=== PATIENT | female | born 1980 | race African-American/Black ===

== ENCOUNTER 2019-05-22 08:00 | Inpatient (IN) | payer OTHER ==
[2019-05-22] MEDS ORDERED: ONDANSETRON 4 MG/2 ML VIAL IVPUSH PRN (09:37)
[2019-05-22] MEDS ORDERED: morphine SULFATE/PF 0.5 MG/ML (2cc Syringe - QUVA) EP ONE (09:37)
[2019-05-22 10:06] VITALS: BMI 55.7
[2019-05-22] MEDS ORDERED: morphine SULFATE/PF 0.5 MG/ML (2cc Syringe - QUVA) ONE (10:23)
[2019-05-22] MEDS ORDERED: CITRIC ACID/SODIUM CITRATE 30 ML UNIT-DOSE CUP PO ONE (10:24)
--- NOTE | 2019-05-22 10:24 | HP ---
Past Medical History - Primary Care Physician PCP:: Estephania Collier - Admission Chief Complaint: chronic hypertension. Previous Section. Obesity History of Present Illness: 38 yo EDC 06/03/2019 EGA 38 week with obesity, chronic hypertension, previous CS for repeat CS History Source: Patient Limitations to Obtaining History: No Limitations - Past Medical History ...: 3 ...Para: 1 ...Term: 0 ...: 1 ...Spon : 1 ...Induced : 0 ...Multiple Gestation: 0 ...LMP: 08/27/18 ... Weeks Gestation by Dates: 38.2 ...EDC by Dates: 06/03/19 - Past Surgical History Past Surgical History: Yes: Hx Myomectomy: No Hx Transabdominal Cerclage: No - Smoking History Smoking history: Never smoked Have you smoked in the past 12 months: No - Alcohol/Substance Use Hx Alcohol Use: No History of Substance Use: reports: None - Social History Usual Living Arrangement: Yes: With Spouse History of Recent Travel: No Home Medications - Allergies Allergies/Adverse Reactions: Allergies Allergy/AdvReac Type Severity Reaction Status Date / Time iodine Allergy Severe Itching Verified 05/22/19 10:06 shellfish derived Allergy Severe Itching Verified 05/22/19 10:06 Latex, Natural Rubber AdvReac Intermediate Itching Verified 05/22/19 10:06 - Home Medications Home Medications: Ambulatory Orders Aspirin [ASA -] 81 mg PO DAILY 05/22/19 Labetalol HCl [Normodyne -] 200 mg PO BID 05/22/19 Pnv No.95/Ferrous Fum/Folic AC [ Vitamin Tablet] 1 each PO DAILY 05/22/19 Review of Systems - Review of Systems Constitutional: reports: No Symptoms Eyes: reports: No Symptoms HENT: reports: No Symptoms Neck: reports: No Symptoms Cardiovascular: reports: No Symptoms Respiratory: reports: No Symptoms Gastrointestinal: reports: No Symptoms Genitourinary: reports: No Symptoms Breasts: reports: No Symptoms Reported Musculoskeletal: reports: No Symptoms Integumentary: reports: No Symptoms Neurological: reports: No Symptoms Endocrine: reports: No Symptoms Hematology/Lymphatic: reports: No Symptoms Psychiatric: reports: No Symptoms Physical Exam - Maternity Vital Signs: Vital Signs Temperature 98.4 F 05/22/19 09:00 Pulse Rate 75 05/22/19 09:00 Respiratory Rate 20 05/22/19 09:00 Blood Pressure 106/82 05/22/19 09:00 O2 Sat by Pulse Oximetry (%) Constitutional: Yes: Well Nourished, No Distress, Obese Breast(s): Yes: WNL - Abdominal Exam/OB Fundal Height: 38 Number of Fetuses: Single Presentation: Vertex Contractions: Yes Regularity: Regular Category: I Accelerations: Non-Uniform Decelerations: None - Vaginal Exam/OB Speculum Exam: No Dilatation (cm): closed Amniotic Membrane Status: Intact Presentation: Vertex/Position Station: -1 - Physical Exam Musculoskeletal: Yes: WNL Extremities: Yes: WNL Edema: No Psychiatric: Yes: WNL, Alert, Oriented Hemorrhage Risk Assessment - Risk Factors Medium Risk Factors: Yes: Prior , uterine surgery,or multiple laparotomies Risk Score: 1 Risk Level: Medium Risk Problem List - Problems (1) Chronic hypertension affecting Code(s): O10.919 - UNSP PRE-EXISTING HTN COMP , UNSP TRIMESTER (2) 38 weeks gestation of Code(s): Z3A.38 - 38 WEEKS GESTATION OF (3) Previous delivery affecting , antepartum Code(s): O34.219 - MATERNAL CARE FOR UNSP TYPE SCAR FROM PREVIOUS DEL (4) Obesity affecting in third trimester Code(s): O99.213 - OBESITY COMPLICATING , THIRD TRIMESTER Assessment/Plan Chronic HTN IUP at 38 week previous CS morbid obesity CAt 1 GBS negative Plan repeat CS
[2019-05-22] MEDS ORDERED: WITCH HAZEL 50% (TUCKS) 40 PAD/JAR PAD TP PRN (10:26)
[2019-05-22] MEDS ORDERED: diphenhydrAMINE HCL 25 MG CAPSULE (FP) PO PRN (10:26)
[2019-05-22] MEDS ORDERED: IBUPROFEN 800 MG/8 ML IJ IVPB PRN (10:26)
[2019-05-22] MEDS ORDERED: METHYLERGONOVINE MALEATE 0.2 MG/1 ML AMP IM PRN (10:26)
[2019-05-22] MEDS ORDERED: ACETAMINOPHEN 325 MG TABLET (FP) PO PRN (10:26)
[2019-05-22] MEDS ORDERED: BENZOCAINE 28 GM HEMORRHOIDAL OINTMENT RC PRN (10:26)
[2019-05-22] MEDS ORDERED: BENZOCAINE 20% 57 GM BOTTLE TP PRN (10:26)
[2019-05-22] MEDS ORDERED: ceFAZolin SODIUM 1 GM VIAL ONE (10:29)
[2019-05-22] MEDS ORDERED: OXYTOCIN 20 UNITS in 0.9% NS 40 UNIT/2,000 ML INFUS.BAG IV ONE (10:39)
[2019-05-22] MEDS ORDERED: OXYTOCIN 10 UNITS/ML VIAL ONE (10:49)
[2019-05-22] MEDS ORDERED: KETOROLAC TROMETHAMINE 30 MG/1 ML VIAL ONE (10:49)
[2019-05-22] MEDS: OXYTOCIN 20 UNITS in 0.9% NS 20 UNIT/1,000 ML INFUS.BAG IV SCH ×2 (11:15→22:44)
[2019-05-22] MEDS ORDERED: ELECTROLYTE-148 SOLN 1,000 ML IV SCH (13:00)
[2019-05-22] MEDS ORDERED: LABETALOL HCL 200 MG TABLET (FP) ONE (13:03)
[2019-05-22] MEDS: LABETALOL HCL 200 MG TABLET (FP) PO SCH ×2 (13:05→22:45)
--- NOTE | 2019-05-22 16:06 | OP ---
Operative Note - Note: Operative Date: 05/22/19 Pre-Operative Diagnosis: Chronic Hypertension. IUP at 38 week. previous CS Operation: Repeat Low transverse Section Findings: Live female Post-Operative Diagnosis: Same as Pre-op Surgeon: Estephania Collier Skeins Yarn Examiner: Manas Nguyen Anesthesia: Spinal Estimated Blood Loss (mls): 700 Operative Report Dictated: Yes
[2019-05-22] MEDS: CEFAZOLIN 2 GM/D5W 2 GM/50 ML ML IVPB SCH (17:59)
[2019-05-22] MEDS ORDERED: ceFAZolin 2 GRAM PREMIX BAG IVPB SCH (18:00)
[2019-05-22] MEDS: ACETAMINOPHEN 1000 MG/100 ML VIAL (NON FORMULARY) IVPB PRN (22:42)
[2019-05-23] MEDS: CEFAZOLIN 2 GM/D5W 2 GM/50 ML ML IVPB SCH ×2 (01:52→10:17)
[2019-05-23] MEDS: LABETALOL HCL 200 MG TABLET (FP) PO SCH ×3 (06:10→21:04)
[2019-05-23] MEDS: OXYTOCIN 20 UNITS in 0.9% NS 20 UNIT/1,000 ML INFUS.BAG IV SCH (06:12)
[2019-05-23] MEDS: ACETAMINOPHEN 1000 MG/100 ML VIAL (NON FORMULARY) IVPB PRN (06:34)
[2019-05-23] MEDS ORDERED: DIPHTH,PERTUSS(ACELL),TET 0.5 ML DISP.SYRIN IM ONE (10:00)
[2019-05-23] MEDS: ENOXAPARIN NA (PORCINE) 40 MG/0.4 ML DISP.SYRIN SQ SCH (10:17)
[2019-05-23] MEDS ORDERED: oxyCODONE HCL 5 MG TABLET PO PRN ×4 (10:26→16:08)
[2019-05-23] MEDS ORDERED: BISACODYL 10 MG SUPP.RECT RC PRN (10:26)
[2019-05-23] MEDS: SIMETHICONE 80 MG TAB.CHEW (FP) PO PRN (14:28)
[2019-05-23] MEDS: ACETAMINOPHEN 325 MG TABLET (FP) PO PRN ×2 (14:28→21:05)
--- NOTE | 2019-05-23 16:06 | PN ---
Progress Note (SOAP) - Subjective Chief Complaint: Pt upset bc baby taken to [facility] due to possible blockage no flatus Pt found ambulating - Current Medications Current Medications: Active Medications Diphenhydramine HCl (Benadryl Injection -) 25 mg IVPUSH Q4H PRN PRN Reason: Pruritis Enoxaparin Sodium (Lovenox -) 40 mg SQ DAILY [facility] Last Admin: 05/23/19 10:17 Dose: 40 mg Documented by: Oxytocin/Sodium Chloride (Normal Saline+20 Units Oxytocin -) 20 unit in 1,000 mls @ 125 mls/hr IV ASDIR [facility] Last Admin: 05/23/19 06:12 Dose: 125 mls/hr Documented by: Cefazolin Sodium/Dextrose (Ancef 2 Gm Premixed Ivpb -) 2 gm in 50 mls @ 100 mls/hr IVPB Q8H-IV [facility] Stop: 05/23/19 17:59 Last Admin: 05/23/19 10:17 Dose: 100 mls/hr Documented by: Parenteral Electrolytes (Plasma-Lyte 148 -) 1,000 mls @ 125 mls/hr IV ASDIR [facility] Last Admin: 05/22/19 09:30 Dose: 125 mls/hr Documented by: Labetalol HCl (Normodyne -) 200 mg PO TID [facility] Last Admin: 05/23/19 14:27 Dose: 200 mg Documented by: Ondansetron HCl (Zofran Injection) 4 mg IVPUSH Q4H PRN PRN Reason: NAUSEA Last Admin: 05/22/19 14:23 Dose: 4 mg Documented by: - Objective Vital Signs: Vital Signs Temperature 99.1 F 05/23/19 14:00 Pulse Rate 95 H 05/23/19 14:00 Respiratory Rate 20 05/23/19 14:00 Blood Pressure 119/80 05/23/19 14:00 O2 Sat by Pulse Oximetry (%) 97 05/22/19 12:25 Constitutional: Yes: Well Nourished, No Distress, Obese ....Post : Yes: Uterus firm, Uterus non-tender Extremities: Yes: WNL Edema: No Wound/Incision: Yes: Steri Strips, Open to air Problem List - Problems (1) Chronic hypertension affecting Code(s): O10.919 - UNSP PRE-EXISTING HTN COMP , UNSP TRIMESTER (2) 38 weeks gestation of Code(s): Z3A.38 - 38 WEEKS GESTATION OF (3) Previous delivery affecting , antepartum Code(s): O34.219 - MATERNAL CARE FOR UNSP TYPE SCAR FROM PREVIOUS DEL (4) Obesity affecting in third trimester Code(s): O99.213 - OBESITY COMPLICATING , THIRD TRIMESTER Assessment/Plan Chronic HTN POD1 doing well previous CS x 2 morbid obesity Plan oob will dc tomorrow if passing flatus
[2019-05-23] MEDS ORDERED: SENNOSIDES/DOCUSATE COMBO (SENNA PLUS) TABLET (UD) PO PRN (22:05)
[2019-05-24] MEDS: ACETAMINOPHEN 325 MG TABLET (FP) PO PRN ×2 (00:15→06:20)
[2019-05-24] MEDS: SIMETHICONE 80 MG TAB.CHEW (FP) PO PRN (00:16)
[2019-05-24] MEDS: LABETALOL HCL 200 MG TABLET (FP) PO SCH (06:20)
[2019-05-24 06:23] VITALS: PULSE 98
--- NOTE | 2019-05-24 07:34 | DS ---
Physical Exam-BOOKS BINDER Vital Signs: Vital Signs Temperature 99.0 F 05/23/19 21:48 Pulse Rate 98 H 05/24/19 06:00 Respiratory Rate 18 05/24/19 06:00 Blood Pressure 139/84 05/24/19 06:00 O2 Sat by Pulse Oximetry (%) 97 05/22/19 12:25 Constitutional: Yes: Well Nourished, No Distress, Obese ....Post : Yes: Uterus firm, Uterus non-tender Extremities: Yes: WNL Edema: No Psychiatric: Yes: WNL, Alert, Oriented Delivery - Delivery Type of Anesthesia: Spinal Episiotomy/Laceration: None EBL (cc): 700 Delivery, Single - Stages of Labor Date of Delivery: 05/22/19 Time of Delivery: 10:52 Time Placenta Delivered: 10:53 - Condition of Wardrobe Stylist/Harness Builder Present: Yes Name: Alexander Quintanilla Gender: Female Weight: 5 lb 7 oz Position: OT Total Hours ROM (Hrs/Mins): 3min - 1 Minute Total Score: 9 5 Minutes Total Score: 8 - [place] Feeding Plan Initial Plan: Exclusive throughout hospitalization Discharge Summary Problems reviewed: Yes Reason For Visit: REPEAT Current Active Problems 38 weeks gestation of (Acute) Chronic hypertension affecting (Acute) Obesity affecting in third trimester (Acute) Previous delivery affecting , antepartum (Acute) Procedures: Principal: Repeat Section low transverse Hospital Course: unremarkable Condition: Good - Instructions Diet, Activity, Other Instructions: Physical activity Resume your normal everyday activity as tolerated no heavy lifting or exercise until seen by your surgeon. You may walk unlimited juventino of and climb stairs. You may resume driving the car when you feel safe and comfortable behind the wheel. No sexual activity as instructed. Wound care If you have a bandage, leave it on, and keep dry for 48-72 hours. After that time discard the outer bandage. If they are tapes on the skin under the out of bandage leave them in place. They will peel off in the next 7 to 10 days. Do Not Peel them off. You may shower the day after surgery. If there are tapes present on the skin, you may shower over them. Diet There are no dietary restrictions. Eat healthy, high-fiber foods. Drink 6 to 8 glasses of liquid each day. This will assist in keeping your bowels are regular. Pain management You may take Tylenol or acetaminophen or Ibuprofen (for example, Motrin, Advil etc.) from my pain prescription medication is ordered should be taken as prescribed for moderate to severe pain. Call MD for any of the following: Severe pain not relieved by medication Fever of 101 or higher Excessive bleeding or drainage on dressing Inability to urinate Referrals: Estephania Collier MD [Staff Physician] - Disposition: HOME - Home Medications Comprehensive Discharge Medication List: Ambulatory Orders Aspirin [ASA -] 81 mg PO DAILY 05/22/19 Labetalol HCl [Normodyne -] 200 mg PO BID 05/22/19 Pnv No.95/Ferrous Fum/Folic AC [ Vitamin Tablet] 1 each PO DAILY 05/22/19 Labetalol HCl [Normodyne -] 200 mg PO BID #90 tablet 05/24/19 Oxycodone HCl/Acetaminophen [Percocet 5-325 mg Tablet] 1 - 2 tab PO Q6H #20 tab MDD 6 05/24/19
--- NOTE | 2019-05-24 08:17 | OP ---
DATE OF OPERATION: 05/22/2019 PREOPERATIVE DIAGNOSES: Chronic hypertension, intrauterine at 38 weeks, previous section and obesity. SURGEON: Estephania Collier MD COMPOUNDING ASSISTANT: GREGG Hager ANESTHESIA: Spinal. PROCEDURE: Patient was taken to the operating room, placed in the supine position, prepped and draped in the usual sterile fashion. Timeout was performed in accordance with hospital regulation. The Pfannenstiel skin incision was made through the patient's previous scar. Cautery was then used to go through the layers of the abdominal wall to the level of the fascia. Fascia cut in the midline and cautery was then used to open the fascia in smiling fashion. Connor was then used to bluntly and sharply dissect the rectus muscle off the fascia. Muscle split in the midline. Peritoneal cavity was then entered and carried upward and downward. Bladder retractor was then placed. Flap was then used to make a low transverse uterine incision. Incision was carried upwards with bandage scissors. A live female infant was delivered in OT position. Nose and mouth suction performed. Shoulders were delivered without difficulty. Cord was clamped and cut. was handed to volunteer manager sugarcane research technician. Cord blood obtained. Cord pH obtained. Placenta was manually extracted from the uterus. Uterus exteriorized and cleaned with clean lap pads. Uterine incision was then closed using 0 Vicryl suture, 1st layer continuous and locking, 2nd layer imbricating the 1st layer. Hemostasis was achieved. Uterus was then interiorized. Abdominal cavity cleaned with clean lap pads. Peritoneum was then closed using 0 Biosyn suture. Muscle approximated in the midline. Fascia was then closed using 0 Vicryl suture in 2 parts. Subcutaneous was then closed using 0 Biosyn suture in a running stich and skin was then closed using 3-0 Vicryl in subcuticular fashion. Wound was washed and dressed. Patient tolerated procedure well. Estimated blood loss 700 mL. ESTEPHANIA COLLIER M.D. [id number]
[2019-05-24 09:40] VITALS: BP 140/93; TEMP 98.4
[2019-05-24] MEDS: ENOXAPARIN NA (PORCINE) 40 MG/0.4 ML DISP.SYRIN SQ SCH (10:58)
[2019-05-24] MEDS ORDERED: SENNOSIDES/DOCUSATE COMBO (SENNA PLUS) TABLET (UD) PO PRN (22:00)
--- NOTE | 2019-05-26 13:19 | PATH ---
Surgical Pathology Report Patient Name: KWAKU GRUBER Med. Rec. 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 Specimen(s) Received PLACENTA Clinical History 38.2 weeks with hypertension, SPAB x1, history of asthma, chronic hypertension Final Diagnosis PLACENTA: THIRD TRIMESTER PLACENTA WITH FOCAL INFARCTION (1.2 CM IN GREATEST DIMENSION). TRIVASCULAR CORD. MEMBRANES WITH NO DIAGNOSTIC ABNORMALITIES. Electronically Signed Stevie Powell M.D. Gross Description The specimen is received fresh labeled placenta and is a 244 gram, 15.5 x 12.5 x 2.0 cm. placenta with attached membranes and umbilical cord. The attached membranes are martinez, translucent with focal opacities and insert marginally. The umbilical cord measures 10 cm. in length and averages 1 cm. in diameter. The cord inserts eccentrically, 1 cm. to the nearest margin. No true knots or strictures are identified. Cut surface of the umbilical cord reveals 3 vessels. The surface is richey-blue with minimal fibrin deposition and appropriate caliber vessels. The maternal surface is red-brown with focal defects. Sectioning reveals a 1.2 cm greatest dimension martinez, firm, focally hemorrhagic lesion. The remaining placental parenchyma is red-brown and spongy. Manager Clinical sections are submitted in three cassettes as follows: 1- membrane rolls and umbilical cord; 2- lesion; 3- full thickness section of placenta. /05/25/2019 [facility]
== END 2019-05-24 11:15 | disposition home or self-care (01) | DRG 787 ==
LOC: JLDR 09:00 → J3W 13:20
PROVIDERS: ADMIT Obstetrics & Gynecology; ATTEND Obstetrics & Gynecology
PROC: 10D00Z1 Extraction of Products of Conception, Low, Open Approach (ICD-10-PCS; principal; 2019-05-22)
DX: O34.219 Maternal care for unspecified type scar from previous cesarean delivery (principal); O10.92 Unspecified pre-existing hypertension complicating childbirth; Z3A.38 38 weeks gestation of pregnancy; Z37.0 Single live birth
CPT/HCPCS: 36600; 82803; 88307-TC; 90715; J0131